=== PATIENT | female | born 1960 | race Caucasian/White ===

== ENCOUNTER 2020-08-14 16:12 | Inpatient (IN) | payer BC, SELFPAY ==
[~2020-08-14] VITALS: Ht 154.9 cm; Wt 59.0 kg
[2020-08-14 16:15] VITALS: BP_SYST 149
[2020-08-14] MEDS ORDERED: ASPIRIN 81 MG TAB.CHEW PO ONE (16:30)
[2020-08-14 16:56] LABS: BASOPHILS % (AUTO) 0.5 % (0.0-2.0); EOSINOPHILS # (AUTO) 0.1 K/uL (0.0-0.4); EOSINOPHILS % (AUTO) 0.8 % (0.0-4.0); HEMATOCRIT 42.1 % (36-48); HEMOGLOBIN 14.4 g/dL (12.0-16.0); LYMPHOCYTES % (AUTO) 24.5 % (20.5-51.5); MEAN CORPUSCULAR HEMOGLOBIN 32 pg (27-31); MEAN CORPUSCULAR HGB CONC 34 % (32-36); MEAN CORPUSCULAR VOLUME 94 fL (79.0-98.0); MONOCYTES # (AUTO) 0.7 K/uL (0.0-1.0); MONOCYTES % (AUTO) 8.2 % (1.7-9.3); NEUTROPHILS # (AUTO) 5.3 K/uL (1.8-7.7); PLATELET COUNT (AUTO) 272 K/uL (130-430); RED BLOOD CELL COUNT(AUTO) 4.51 MIL/uL (4.2-6.2); RED CELL DISTRIBUTION WIDTH 12.1 % (9.0-15.0); WHITE BLOOD COUNT (AUTO) 8.1 K/uL (4.8-10.8)
[2020-08-14 17:07] LABS: CALCIUM 9.1 mg/dL (8.4-11.0); CREATININE 0.82 mg/dL (0.55-1.30); POTASSIUM 4.3 mmol/L (3.5-5.1)
[2020-08-14 17:13] LABS: ALBUMIN 4.2 g/dL (3.4-4.8)
[2020-08-14] MEDS ORDERED: LORA-258 PO (18:03)
[2020-08-14] MEDS ORDERED: IMI50 PO (18:03)
[2020-08-14 20:36] VITALS: BP_SYST 111
[2020-08-14] MEDS ORDERED: MORPHINE 2 MG/ML INJ. SYRINGE IVP PRN (21:45)
[2020-08-14] MEDS ORDERED: NALOXONE HCL 0.4 MG/ML AMP (NARCAN) IVP PRN ×3 (21:45)
[2020-08-14] MEDS ORDERED: ACETAMINOPHEN 325 MG TABLET PO PRN (21:45)
[2020-08-14] MEDS ORDERED: HYDROcodone/ACETAMIN 10-325 MG TAB PO PRN (21:45)
[2020-08-14] MEDS ORDERED: ONDANSETRON HCL 4 MG/2 ML VIAL IVP PRN (21:45)
[2020-08-14] MEDS ORDERED: NITROGLYCERIN 0.4 MG TAB.SUBL SL PRN (21:45)
[2020-08-14] MEDS ORDERED: LORazepam 1 MG TABLET PO PRN (21:45)
[2020-08-14] MEDS ORDERED: SUMAtriptan SUCCINATE 50 MG TABLET PO PRN (21:45)
[2020-08-14] MEDS ORDERED: HYDROcodone/ACETAMIN 5-325 MG TAB (NORCO/ VICODIN) PO PRN (21:45)
[2020-08-14] MEDS ORDERED: NORMAL SALINE 5 ML DISP.SYRIN IVF SCH (22:00)
[2020-08-14] MEDS: NORMAL SALINE 5 ML DISP.SYRIN IVF SCH (22:22)
[2020-08-15 00:02] VITALS: BP_SYST 127
[2020-08-15] MEDS: NORMAL SALINE 5 ML DISP.SYRIN IVF SCH ×2 (06:38→14:32)
[2020-08-15 08:38] LABS: BASOPHILS % (AUTO) 0.5 % (0.0-2.0); EOSINOPHILS # (AUTO) 0.2 K/uL (0.0-0.4); EOSINOPHILS % (AUTO) 3.4 % (0.0-4.0); HEMATOCRIT 43.8 % (36-48); HEMOGLOBIN 14.7 g/dL (12.0-16.0); LYMPHOCYTES # (AUTO) 1.5 K/uL (1.0-5.5); LYMPHOCYTES % (AUTO) 34.5 % (20.5-51.5); MEAN CORPUSCULAR HEMOGLOBIN 32 pg (27-31); MEAN CORPUSCULAR HGB CONC 34 % (32-36); MEAN CORPUSCULAR VOLUME 94 fL (79.0-98.0); MONOCYTES # (AUTO) 0.4 K/uL (0.0-1.0); MONOCYTES % (AUTO) 8.6 % (1.7-9.3); NEUTROPHILS # (AUTO) 2.4 K/uL (1.8-7.7); PLATELET COUNT (AUTO) 254 K/uL (130-430); RED BLOOD CELL COUNT(AUTO) 4.64 MIL/uL (4.2-6.2); RED CELL DISTRIBUTION WIDTH 12.2 % (9.0-15.0); WHITE BLOOD COUNT (AUTO) 4.5 K/uL (4.8-10.8)
[2020-08-15 08:59] LABS: ANION GAP 6 (5-15); CALCIUM 8.7 mg/dL (8.4-11.0); CHLORIDE 103 mmol/L (98-107); CREATININE 0.69 mg/dL (0.55-1.30); GLUCOSE 97 mg/dL (70-99); PHOSPHORUS 3.5 mg/dL (2.7-4.5); POTASSIUM 3.7 mmol/L (3.5-5.1); SODIUM SERUM 139 mmol/L (136-145); THYROID STIMULATING HORMONE 3.29 uIu/mL (0.36-3.74); UREA NITROGEN, BLOOD 14 mg/dL (8-21)
[2020-08-15 09:01] LABS: GFR AFRICAN AMERICAN 112 mL/min (>90)
[2020-08-15 09:32] LABS: CHOLESTEROL 202 mg/dL (<200); HDL CHOLESTEROL 78 mg/dL (>55); LDL CHOLESTEROL 113 mg/dL (<100); TRIGLYCERIDES 60 mg/dL (30-150)
[2020-08-15 11:14] VITALS: BP_SYST 122
[2020-08-15 15:47] VITALS: BP_SYST 105
[2020-08-15 17:44] VITALS: BP_SYST 105
== END 2020-08-15 18:34 | disposition home or self-care (01) | DRG 313 ==
LOC: SED 16:12 → STU 18:03
PROVIDERS: ADMIT Preventive Medicine Preventive Medicine/Occupational Environmental Medicine; ATTEND Preventive Medicine Preventive Medicine/Occupational Environmental Medicine
DX: R07.89 Other chest pain (principal); E78.2 Mixed hyperlipidemia; E83.42 Hypomagnesemia; D72.819 Decreased white blood cell count, unspecified; Z20.828 Contact with and (suspected) exposure to other viral communicable diseases; F41.9 Anxiety disorder, unspecified; G43.909 Migraine, unspecified, not intractable, without status migrainosus
CPT/HCPCS: 36415; 71045; 80048; 80053; 80061; 83735-TC; 83880; 84100-TC; 84443-TC; 84484; 85025; 85379; 93005; 93306; 99285; G0378